=== PATIENT | female | born 1940 ===

== ENCOUNTER 2021-06-11 13:30 | Outpatient (RCR) | payer MEDICARE, BC, SELFPAY ==
--- NOTE | 2021-03-19 14:01 | W.PM.TMSCONS ---
History of Present Illness General Data Date of Service: 03/18/21 Reason for consult: TMS EVAL REFERRED BY [facility] SALTY CHOWDHURY NP History of Present Illness THE PATIENT IS A 80 YEAR-OLD FEMALE REFERRED TO [facility] FOR INCURABLES FOR TREATMENT WITH TMS. THE PATIENT IS A COMPLEX PATIENT WITH 3 YEARS WORSENING DEPRESSIVE SYMPTOMS BECOMING INCREASINGLY NONFUNCTIONAL COMPLICATED BY ATYPICAL NEUROLOGICAL SYMPTOMS . THE PATIENT HAS BECOME INCREASINGLY NONFUNCTIONAL LETHARGIC DEPRESSED HOPELESS HELPLESS WITH MINIMAL FUNCTIONING. SHE IS PREOCCUPIED AND ANXIOUS MUCH OF THE TIME. NEUROLOGICALLY SHE HAS BEEN NOTED TO HAVE ISOLATED INFREQUENT EPILEPTIFORM ABNORMALITIES OVER THE FRONTAL PARIETAL REGIONS NO ORGANIZED ACTIVITY SUGGESTIVE OF SEIZURES SHE HAS BEEN ON LAMOTRIGINE. PET SCAN IN FEBRUARY OF 2020 SHOWED SOME ATYPICAL ABNORMALITIES AND MRI SHOWED SOME PROMINENT SULCI AND A 1.5 CM POSTERIOR MENINGIOMA SEPTEMBER 2019 WHICH HAS GROWN MINIMALLY FROM 2017. THE PATIENT'S CURRENT MEDICATIONS INCLUDE WELLBUTRIN 75 MG S CITALOPRAM 20 MG LAMOTRIGINE 50 MG TWICE A DAY LEVOTHYROXINE 50 MICRO G LOSARTAN 100 MG MULTI KENDELL 1 TAB DAILY. THE PATIENT HAS BEEN FOLLOWED CYCLE FOR PHARMACOLOGICALLY BY SALTY GOFF CLINICAL NURSE PRACTITIONER TELEPHONE [phone]. [phone] SHE HAS A A THERAPIST RODOLFO SHIELDS AT [facility] A NEUROLOGIST ISACC BLANK TELEPHONE 6. [id number] HER PRIMARY CARE PHYSICIAN IS AT [facility] TELEPHONE 5. [id number] THE PATIENT HAS HAD ANXIETY IN THE PAST BUT OVER THE PAST 3 YEARS HAS BECOME INCREASINGLY NON FUNCTIONAL AND ACCORDING TO HER PROVIDERS DOES NOT SEEM TO BE CONSISTENT WITH WHAT MAY BE GOING ON NEUROLOGICALLY. SHE IS FELT TO BE CATASTROPHIC COULEE DEPRESSED FEARFUL ANXIOUS LEADING HER TO BECOME INCREASINGLY NONFUNCTIONAL. SHE IS TO BE QUITE ACTIVE ENGAGED BIKE RIDING HIKING AND SHE SPENDS MUCH OF HER TIME IN A CHAIR OR IN BED. SHE IS GETTING SOME PHYSICAL THERAPY TO. PATIENT HAS BEEN READING LIZBETH READING BOOKS. SHE HAS LOW ENERGY PSYCHOMOTOR RETARDATION DECREASED INTEREST MOTIVATION AND AVOIDANCE BEHAVIOR SECONDARY TO BOTH DEPRESSION AND WHAT APPEARS TO BE ANXIETY AND RUMINATION. SHE HAS BECOME QUITE FEARFUL AND SOCIAL SITUATIONS. PATIENT DENIES ANY ONGOING PSYCHOTIC SYMPTOMS AND DENIES THAT SHE HAS HAD ANY ACTIVE SELF-HARMING THOUGHTS. Past Psychiatric History/Medication Trials: Prior to the past couple of years the patient has a history of some anxiety symptoms past panic symptoms but was highly functional [facility] Medical History Generalized anxiety disorder with panic attacks Narrative: ? atypical dx unclear no tonic clonic on lamictal for mood and unclear other symptoms hx meningioma being monitored wt loss Dr. Rodriguez and Dr. Blank on 03/17/2021 stated that based on the patient's history and workup there are no clear absolute neurological contraindications to TMS Questionable history of Kta Vu experiences Neurological and neuro psychological evaluations remain without clear diagnosis and patient without significant decline over the past year. 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 jessica Velasco Family History: Mother with schizophrenia Social History: The patient is attended college she used to work as a banking manager. She has been to her from was 60 years and they have 5 children. Patient was very physically active with yoga jammie-chi biking going to the gym up until she became ill Patient was generally perfectionistic Substance History: none Trauma History: none Meds/Allergies Meds Narrative: Current medications include Wellbutrin 75 mg immediate release daily to be discontinued Colace 200 b.i.d. Lexapro 20 mg daily Lamictal 50 mg b.i.d. Synthroid 50 micro g Cozaar 100 mg daily multi Kendell 1 tab daily Allergies Allergies Allergy/AdvReac Type Severity Reaction Status Date / Time amlodipine AdvReac Mild edema Verified 04/01/21 11:12 Mental Status Exam Mental Status Exam Narrative: resting tremor significant anxiety sitting in wheelchair Patient Appearance: Well Grooomed and Fatigued Patient Orientation: Person, Place and Situation Level of Consciousness: Awake and Alert Patient Behavior: Appropriate and Anxious Mood Description: Depressed, Anxious and Apprehensive Affect Description: Depressed, Anxious and Apprehensive Patient Cognition Impaired: Yes Ability to Follow Directions: Good Speech Pattern: Clear Hallucinations: None (denies currently) Thought Process: Rumination Thought Content: positive for Preoccupation Depressive Symptoms: Increased Anxiety, Changes in Appetite, Significant Weight Loss, Isolating-Friends/Family, Increased Fatigue and Difficulty Concentrating Abnormal Motor Activity Signs and Symptoms: Psychomotor Retardation and Tremors Judgement: Fair Assessment & Plan Assessment & Plan (1) Major depressive disorder, recurrent episode, severe with anxious distress: Status: Acute Code(s): F33.2 - Major depressive disorder, recurrent severe without psychotic features Recommendations: tms indicated with some inc risk of seizure possible cognitive effect given unclear neurologic diagnosis this was reviewed with patient and her . The patient has had chronic depression unremitting with [place] in a typical neurological syndrome that does not appear to be a contraindication to TMS. Neurological note reviewed. Patient has no medical contraindications no cochlear implant pacemaker metallic fragments history of tonic-clonic seizures history of brain surgery or other surgery above the head or neck. The hope from a clean is that the patient if treated for depression will show improve functioning from whatever part of her condition has been a chronic mixture of depression and anxiety with increased lack of functioning will gradually increase MT and monitor for adverse effects. Above reviewed with referring to from clean and with patient and (2) Generalized anxiety disorder with panic attacks: Status: Acute Code(s): F41.1 - Generalized anxiety disorder; F41.0 - Panic disorder [episodic paroxysmal anxiety] Recommendations: cont tx plan per jenni ? r sided tx (3) Neurocognitive disorder: Status: Acute Code(s): R41.9 - Unspecified symptoms and signs involving cognitive functions and awareness Recommendations: monitor effects Greater than 50% of the session was spent on counseling and/or coordination of care
--- NOTE | 2021-03-24 23:28 | HO.TMSDAILY2 ---
TMS Daily Progress Note Daily TMS Progress Note Date of Service: 03/24/21 Week #: 1 Treatment #(09-28): 1 PHQ-9 Pre-Treatment (09-25): 19 PHQ-9 Most Recent (09-25): 19 Reviewed: TMS Mapping/Re-mapping completed Verification: I have reviewed the TMS Composing Room Machinist Apprentice Note and agree with the contents. The patient remains a candidate to continue TMS treatment per protocol. Informed consent obtained increased seizure risk reviewed with patient and
--- NOTE | 2021-03-25 23:30 | P.PNPS_ITS ---
TMS Daily Progress Note Daily TMS Progress Note Date of Service: 03/25/21 Week #: 1 Treatment #(09-28): 2 PHQ-9 Pre-Treatment (09-25): 19 PHQ-9 Most Recent (09-25): 19 Reviewed: TMS Tech Note Reviewed Verification: I have reviewed the TMS Insulation Cupola Charger Note and agree with the contents. The patient remains a candidate to continue TMS treatment per pro tocol. Patient tolerated tms well no adverse affects
--- NOTE | 2021-03-26 23:04 | HO.TMSDAILY2 ---
TMS Daily Progress Note Daily TMS Progress Note Date of Service: 03/26/21 Week #: 1 Treatment #(09-28): 3 PHQ-9 Pre-Treatment (09-25): 19 PHQ-9 Most Recent (09-25): 19 Reviewed: TMS Tech Note Reviewed Verification: I have reviewed the TMS Steam Locomotive Firer/Fireman Note and agree with the contents. The patient remains a candidate to continue TMS treatment per protocol.
--- NOTE | 2021-04-02 21:21 | HO.TMSDAILY2 ---
TMS Daily Progress Note Daily TMS Progress Note Date of Service: 04/02/21 Week #: 2 Treatment #(09-28): 8 PHQ-9 Pre-Treatment (09-25): 19 PHQ-9 Most Recent (09-25): 19 Reviewed: TMS Tech Note Reviewed Verification: I have reviewed the TMS Entry Level Sales Consultant Note and agree with the contents. The patient remains a candidate to continue TMS treatment per protocol.
--- NOTE | 2021-04-03 21:11 | P.PNPS_ITS ---
TMS Daily Progress Note Daily TMS Progress Note Date of Service: 03/27/21 Week #: 1 Treatment #(09-28): 4 late entry for 03/27/21 PHQ-9 Pre-Treatment (09-25): 19 PHQ-9 Most Recent (09-25): 19 Reviewed: TMS Tech Note Reviewed Verification: I have reviewed the TMS Rim Turning Finisher Note and agree with the contents. The patient remains a candidate to continue TMS treatment per protocol.
--- NOTE | 2021-04-03 21:13 | HO.TMSDAILY2 ---
TMS Daily Progress Note Daily TMS Progress Note Date of Service: 03/28/21 Week #: 1 Treatment #(09-28): 5 late entry for 03/28/21 PHQ-9 Pre-Treatment (09-25): 19 PHQ-9 Most Recent (09-25): 19 Reviewed: TMS Tech Note Reviewed Verification: I have reviewed the TMS Celebrity Chef Entrepreneur Media Personality Note and agree with the contents. The patient remains a candidate to continue TMS treatment per protocol.
--- NOTE | 2021-04-03 21:15 | HO.TMSDAILY2 ---
TMS Daily Progress Note Daily TMS Progress Note Date of Service: 03/31/21 Week #: 2 Treatment #(09-28): 6 late entry 03/31 PHQ-9 Pre-Treatment (09-25): 19 PHQ-9 Most Recent (09-25): 19 Reviewed: TMS Tech Note Reviewed Verification: I have reviewed the TMS County Director Welfare Note and agree with the contents. The patient remains a candidate to continue TMS treatment per protocol.
--- NOTE | 2021-04-03 21:17 | P.PNPS_ITS ---
TMS Daily Progress Note Daily TMS Progress Note Date of Service: 04/01/21 Week #: 2 Treatment #(09-28): 7 PHQ-9 Pre-Treatment (09-25): 19 PHQ-9 Most Recent (09-25): 19 Reviewed: TMS Tech Note Reviewed Verification: I have reviewed the TMS Chick Sexer Note and agree with the contents. The patient remains a candidate to continue TMS treatment per pro tocol.
--- NOTE | 2021-04-03 21:20 | HO.TMSDAILY2 ---
TMS Daily Progress Note Daily TMS Progress Note Date of Service: 04/01/21 Week #: 2 Treatment #(09-28): 7 PHQ-9 Pre-Treatment (09-25): 19 PHQ-9 Most Recent (09-25): 19 Reviewed: TMS Tech Note Reviewed Verification: I have reviewed the TMS Underground Production Foreperson Note and agree with the contents. The patient remains a candidate to continue TMS treatment per protocol.
--- NOTE | 2021-04-03 21:23 | HO.TMSDAILY2 ---
TMS Daily Progress Note Daily TMS Progress Note Date of Service: 04/03/21 Week #: 2 Treatment #(09-28): 9 PHQ-9 Pre-Treatment (09-25): 19 PHQ-9 Most Recent (09-25): 19 Reviewed: TMS Tech Note Reviewed Verification: I have reviewed the TMS Social Science Research Assistant Note and agree with the contents. The patient remains a candidate to continue TMS treatment per protocol.
--- NOTE | 2021-04-18 15:03 | P.PNPS_ITS ---
TMS Daily Progress Note Daily TMS Progress Note Date of Service: 04/18/21 Week #: 4 Treatment #(09-28): 20 PHQ-9 Pre-Treatment (09-25): 14 PHQ-9 Most Recent (09-25): 10 Reviewed: TMS Tech Note Reviewed Verification: I have reviewed the TMS Director Of Premium Seat Sales Note and agree with the contents. The patient remains a candidate to continue TMS treatment per pr otocol. Post-dated note.
--- NOTE | 2021-04-18 15:05 | HO.TMSDAILY2 ---
TMS Daily Progress Note Daily TMS Progress Note Date of Service: 04/17/21 Week #: 4 Treatment #(09-28): 19 PHQ-9 Pre-Treatment (09-25): 14 PHQ-9 Most Recent (09-25): 10 Reviewed: TMS Tech Note Reviewed Verification: I have reviewed the TMS Personal Computer Specialist Note and agree with the contents. The patient remains a candidate to continue TMS treatment per protocol. Post-dated note.
--- NOTE | 2021-04-18 15:06 | P.PNPS_ITS ---
TMS Daily Progress Note Daily TMS Progress Note Date of Service: 04/15/21 Week #: 4 Treatment #(09-28): 17 PHQ-9 Pre-Treatment (09-25): 14 PHQ-9 Most Recent (09-25): 10 Reviewed: TMS Tech Note Reviewed Verification: I have reviewed the TMS Warp Trucker Note and agree with the contents. The patient remains a candidate to continue TMS treatment per pr otocol. Post-dated note.
--- NOTE | 2021-04-18 15:06 | P.PNPS_ITS ---
TMS Daily Progress Note Daily TMS Progress Note Date of Service: 04/16/21 Week #: 4 Treatment #(09-28): 18 PHQ-9 Pre-Treatment (09-25): 14 PHQ-9 Most Recent (09-25): 10 Reviewed: TMS Tech Note Reviewed Verification: I have reviewed the TMS Nurse Coordinator Note and agree with the contents. The patient remains a candidate to continue TMS treatment per pr otocol. Post-dated note.
--- NOTE | 2021-04-18 15:08 | HO.TMSDAILY2 ---
TMS Daily Progress Note Daily TMS Progress Note Date of Service: 04/11/21 Week #: 3 Treatment #(09-28): 15 PHQ-9 Pre-Treatment (09-25): 14 PHQ-9 Most Recent (09-25): 12 Reviewed: TMS Tech Note Reviewed Verification: I have reviewed the TMS Diet Kitchen Cook Note and agree with the contents. The patient remains a candidate to continue TMS treatment per protocol. Post-dated note.
--- NOTE | 2021-04-18 15:09 | HO.TMSDAILY2 ---
TMS Daily Progress Note Daily TMS Progress Note Date of Service: 04/10/21 Week #: 3 Treatment #(09-28): 14 PHQ-9 Pre-Treatment (09-25): 14 PHQ-9 Most Recent (09-25): 12 Reviewed: TMS Tech Note Reviewed Verification: I have reviewed the TMS Superintendent Concrete Mixing Plant Note and agree with the contents. The patient remains a candidate to continue TMS treatment per protocol. Post-dated note.
--- NOTE | 2021-04-18 15:10 | HO.TMSDAILY2 ---
TMS Daily Progress Note Daily TMS Progress Note Date of Service: 04/09/21 Week #: 3 Treatment #(09-28): 13 PHQ-9 Pre-Treatment (09-25): 14 PHQ-9 Most Recent (09-25): 12 Reviewed: TMS Tech Note Reviewed Verification: I have reviewed the TMS Diesel Electrician Note and agree with the contents. The patient remains a candidate to continue TMS treatment per protocol. Post-dated note.
--- NOTE | 2021-04-18 15:11 | HO.TMSDAILY2 ---
TMS Daily Progress Note Daily TMS Progress Note Date of Service: 04/07/21 Week #: 3 Treatment #(09-28): 11 PHQ-9 Pre-Treatment (09-25): 14 PHQ-9 Most Recent (09-25): 12 Reviewed: TMS Tech Note Reviewed Verification: I have reviewed the TMS Insole Reinforcer Note and agree with the contents. The patient remains a candidate to continue TMS treatment per protocol. Post-dated note.
--- NOTE | 2021-04-18 15:11 | HO.TMSDAILY2 ---
TMS Daily Progress Note Daily TMS Progress Note Date of Service: 04/08/21 Week #: 3 Treatment #(09-28): 12 PHQ-9 Pre-Treatment (09-25): 14 PHQ-9 Most Recent (09-25): 12 Reviewed: TMS Tech Note Reviewed Verification: I have reviewed the TMS Correctional Case Records Supervisor Note and agree with the contents. The patient remains a candidate to continue TMS treatment per protocol. Post-dated note.
--- NOTE | 2021-04-18 18:59 | P.PNPS_ITS ---
TMS Daily Progress Note Daily TMS Progress Note Date of Service: 04/14/21 Week #: 4 Treatment #(09-28): 16 PHQ-9 Pre-Treatment (09-25): 19 PHQ-9 Most Recent (09-25): 19 Reviewed: TMS Tech Note Reviewed (late entry for 04/14/21) Verification: I have reviewed the TMS Cider Press Operator Note and agree with the contents. The patient remains a candidate to continue TMS treatment per protocol.
--- NOTE | 2021-04-18 20:02 | HO.TMSDAILY2 ---
TMS Daily Progress Note Daily TMS Progress Note Date of Service: 04/15/21 Week #: 4 Treatment #(09-28): 17 late entry for 04/15/21 PHQ-9 Pre-Treatment (09-25): 19 PHQ-9 Most Recent (09-25): 19 Reviewed: TMS Tech Note Reviewed Verification: I have reviewed the TMS Senior Firewall Engineer Note and agree with the contents. The patient remains a candidate to continue TMS treatment per protocol.
--- NOTE | 2021-04-21 15:07 | HO.TMSDAILY2 ---
TMS Daily Progress Note Daily TMS Progress Note Date of Service: 04/14/21 Week #: 4 Treatment #(09-28): 16 PHQ-9 Pre-Treatment (09-25): 14 PHQ-9 Most Recent (09-25): 10 Reviewed: TMS Tech Note Reviewed Verification: I have reviewed the TMS Machinist/Machine Builder Note and agree with the contents. The patient remains a candidate to continue TMS treatment per protocol. Post-dated note.
--- NOTE | 2021-04-21 22:11 | HO.TMSDAILY2 ---
TMS Daily Progress Note Daily TMS Progress Note Date of Service: 04/21/21 Week #: 5 Treatment #(09-28): 21 PHQ-9 Pre-Treatment (09-25): 14 PHQ-9 Most Recent (09-25): 12 Reviewed: TMS Tech Note Reviewed Verification: I have reviewed the TMS Oleo Hasher And Renderer Note and agree with the contents. The patient remains a candidate to continue TMS treatment per protocol.consider remap
--- NOTE | 2021-04-22 21:34 | P.PNPS_ITS ---
TMS Daily Progress Note Daily TMS Progress Note Date of Service: 04/22/21 Week #: 5 Treatment #(09-28): 22 PHQ-9 Pre-Treatment (09-25): 14 PHQ-9 Most Recent (09-25): 12 Reviewed: TMS Tech Note Reviewed Verification: I have reviewed the TMS Wood And Wood Products Factory Worker Note and agree with the contents. The patient remains a candidate to continue TMS treatment per p barb.
--- NOTE | 2021-04-23 22:31 | P.PNPS_ITS ---
TMS Daily Progress Note Daily TMS Progress Note Date of Service: 04/23/21 Week #: 5 Treatment #(09-28): 23 PHQ-9 Pre-Treatment (09-25): 14 PHQ-9 Most Recent (09-25): 12 Reviewed: TMS Mapping/Re-mapping completed Verification: I have reviewed the TMS Molding Machine Operator Note and agree with the contents. The patient remains a candidate to continue TMS treatment per protocol. remapping done no significant improvement no clear side effects pt seen with
--- NOTE | 2021-04-24 22:19 | HO.TMSDAILY2 ---
TMS Daily Progress Note Daily TMS Progress Note Date of Service: 04/24/21 Week #: 5 Treatment #(09-28): 24 PHQ-9 Pre-Treatment (09-25): 14 PHQ-9 Most Recent (09-25): 12 Reviewed: TMS Tech Note Reviewed Verification: I have reviewed the TMS Campus Security Officer Note and agree with the contents. The patient remains a candidate to continue TMS treatment per protocol.
--- NOTE | 2021-04-25 17:49 | HO.TMSDAILY2 ---
TMS Daily Progress Note Daily TMS Progress Note Date of Service: 04/25/21 Week #: 5 Treatment #(09-28): 25 PHQ-9 Pre-Treatment (09-25): 14 PHQ-9 Most Recent (09-25): 12 Reviewed: TMS Tech Note Reviewed Verification: I have reviewed the TMS Filter Bed Placer Note and agree with the contents. The patient remains a candidate to continue TMS treatment per protocol.
--- NOTE | 2021-04-28 22:42 | HO.TMSDAILY2 ---
TMS Daily Progress Note Daily TMS Progress Note Date of Service: 04/28/21 Week #: 6 Treatment #(09-28): 26 PHQ-9 Pre-Treatment (09-25): 14 PHQ-9 Most Recent (09-25): 12 Reviewed: TMS Tech Note Reviewed Verification: I have reviewed the TMS Ornamental Plaster Sticker Note and agree with the contents. The patient remains a candidate to continue TMS treatment per protocol.
--- NOTE | 2021-04-29 23:07 | HO.TMSDAILY2 ---
TMS Daily Progress Note Daily TMS Progress Note Date of Service: 04/29/21 Week #: 6 Treatment #(09-28): 27 PHQ-9 Pre-Treatment (09-25): 14 PHQ-9 Most Recent (09-25): 12 Reviewed: TMS Tech Note Reviewed Verification: I have reviewed the TMS Cartoon Animator Note and agree with the contents. The patient remains a candidate to continue TMS treatment per protocol.
--- NOTE | 2021-05-01 00:14 | P.PNPS_ITS ---
TMS Daily Progress Note Daily TMS Progress Note Date of Service: 05/01/21 Week #: 6 Treatment #(09-28): 28 PHQ-9 Pre-Treatment (09-25): 14 PHQ-9 Most Recent (09-25): 12 Reviewed: TMS Tech Note Reviewed Verification: I have reviewed the TMS Supervisor Elementary Education Note and agree with the contents. The patient remains a candidate to continue TMS treatment per p barb.
--- NOTE | 2021-05-02 22:07 | P.PNPS_ITS ---
TMS Daily Progress Note Daily TMS Progress Note Date of Service: 05/02/21 Week #: 6 Treatment #(09-28): 30 PHQ-9 Pre-Treatment (09-25): 14 PHQ-9 Most Recent (09-25): 12 Reviewed: TMS Tech Note Reviewed Verification: I have reviewed the TMS Early Intervention School Psychologist Note and agree with the contents. The patient remains a candidate to continue TMS treatment per p barb.
--- NOTE | 2021-05-07 21:09 | P.PNPS_ITS ---
TMS Daily Progress Note Daily TMS Progress Note Date of Service: 05/07/21 Week #: 7 Treatment #(09-28): 32 PHQ-9 Pre-Treatment (09-25): 14 PHQ-9 Most Recent (09-25): 12 Reviewed: TMS Tech Note Reviewed Verification: I have reviewed the TMS Media Production Operator Note and agree with the contents. The patient remains a candidate to continue TMS treatment per p barb.
--- NOTE | 2021-05-08 17:13 | P.PNPS_ITS ---
TMS Daily Progress Note Daily TMS Progress Note Date of Service: 05/08/21 Week #: 7 Treatment #(09-28): 33 PHQ-9 Pre-Treatment (09-25): 14 PHQ-9 Most Recent (09-25): 12 Reviewed: TMS Tech Note Reviewed Verification: I have reviewed the TMS Sanitation Inspector Note and agree with the contents. The patient remains a candidate to continue TMS treatment per p barb.
--- NOTE | 2021-05-09 22:44 | P.PNPS_ITS ---
TMS Daily Progress Note Daily TMS Progress Note Date of Service: 05/09/21 Week #: 8 Treatment #(09-28): 34 PHQ-9 Pre-Treatment (09-25): 14 PHQ-9 Most Recent (09-25): 12 Reviewed: TMS Tech Note Reviewed Verification: I have reviewed the TMS Services Manager Note and agree with the contents. The patient remains a candidate to continue TMS treatment per p barb.
--- NOTE | 2021-05-13 21:52 | P.PNPS_ITS ---
TMS Daily Progress Note Daily TMS Progress Note Date of Service: 05/13/21 Week #: 8 Treatment #(09-28): 35 PHQ-9 Pre-Treatment (09-25): 14 PHQ-9 Most Recent (09-25): 12 Reviewed: TMS Tech Note Reviewed Verification: I have reviewed the TMS Permanent Mold Supervisor Note and agree with the contents. The patient remains a candidate to continue TMS treatment per radhames day. pt seen extensiveley with her
--- NOTE | 2021-05-14 20:30 | P.PNPS_ITS ---
TMS Daily Progress Note Daily TMS Progress Note Date of Service: 05/14/21 Week #: 8 Treatment #(09-28): 36 PHQ-9 Pre-Treatment (09-25): 14 PHQ-9 Most Recent (09-25): 12 Reviewed: TMS Tech Note Reviewed Verification: I have reviewed the TMS Child Welfare Caseworker Note and agree with the contents. The patient remains a candidate to continue TMS treatment per p barb.
--- NOTE | 2021-05-19 20:37 | P.PNPS_ITS ---
TMS Daily Progress Note Daily TMS Progress Note Date of Service: 05/19/21 Week #: 8 Treatment #(09-28): 37 PHQ-9 Pre-Treatment (09-25): 14 PHQ-9 Most Recent (09-25): 12 Reviewed: TMS Tech Note Reviewed Verification: I have reviewed the TMS Investigator Claims Note and agree with the contents. The patient remains a candidate to continue TMS treatment per p barb. Patient case reviewed in consultation with TMS group. [facility] geriatric service also consulted. The patient's PHQ-9 has decreased in half her quality of life is just beginning to slowly improve going out more walking with her . Patient has essentially been bed ridden and nonfunctional for 2 years has failed medication treatment and appears to be gradually responding to TMS. Next treatment considered recommended by Pieter was ECT which given patient's fragile condition question degenerative neurological condition would be a difficult choice. Given the patient's improvement for the 1st time in 2 years improved mood and functioning will extend treatment course which in the literature is suggested for patients to show improvement and continue to treat past 36 treatments. Above reviewed with patient and her and Pieter psychiatric No adverse effects have been noted no increase seizure activity patient is significantly more alert functional ambulatory and more social. Prior to treatment she had essentially been bed ridden and nonfunctional.
--- NOTE | 2021-05-20 21:31 | HO.TMSDAILY2 ---
TMS Daily Progress Note Daily TMS Progress Note Date of Service: 05/20/21 Week #: 8 Treatment #(09-28): 38 PHQ-9 Pre-Treatment (09-25): 14 PHQ-9 Most Recent (09-25): 12 Reviewed: TMS Tech Note Reviewed Verification: I have reviewed the TMS Farm Service Consultant Note and agree with the contents. The patient remains a candidate to continue TMS treatment per protocol.
--- NOTE | 2021-05-26 21:11 | P.PNPS_ITS ---
TMS Daily Progress Note Daily TMS Progress Note Date of Service: 05/26/21 Week #: 9 Treatment #(09-28): 39 PHQ-9 Pre-Treatment (09-25): 14 PHQ-9 Most Recent (09-25): 12 Reviewed: TMS Tech Note Reviewed Verification: I have reviewed the TMS Driller And Broacher Note and agree with the contents. The patient remains a candidate to continue TMS treatment per p barb.
--- NOTE | 2021-05-28 20:32 | HO.TMSDAILY2 ---
TMS Daily Progress Note Daily TMS Progress Note Date of Service: 05/28/21 Week #: 9 Treatment #(09-28): 40 PHQ-9 Pre-Treatment (09-25): 14 PHQ-9 Most Recent (09-25): 12 Reviewed: TMS Tech Note Reviewed Verification: I have reviewed the TMS Gravity Meter Observer Note and agree with the contents. The patient remains a candidate to continue TMS treatment per protocol.
--- NOTE | 2021-06-02 21:53 | P.PNPS_ITS ---
TMS Daily Progress Note Daily TMS Progress Note Date of Service: 05/30/21 Week #: 9 Treatment #(09-28): 41 PHQ-9 Pre-Treatment (09-25): 14 PHQ-9 Most Recent (09-25): 12 Reviewed: TMS Tech Note Reviewed Verification: I have reviewed the TMS Diesel Maintenance Electrician Note and agree with the contents. The patient remains a candidate to continue TMS treatment per p barb.
--- NOTE | 2021-06-03 21:45 | HO.TMSDAILY2 ---
TMS Daily Progress Note Daily TMS Progress Note Date of Service: 06/03/21 Week #: 10 Treatment #(09-28): 42 PHQ-9 Pre-Treatment (09-25): 14 PHQ-9 Most Recent (09-25): 12 Reviewed: TMS Tech Note Reviewed Verification: I have reviewed the TMS Cosmetology Educator Note and agree with the contents. The patient remains a candidate to continue TMS treatment per protocol.
--- NOTE | 2021-06-05 22:28 | P.PNPS_ITS ---
TMS Daily Progress Note Daily TMS Progress Note Date of Service: 06/04/21 Week #: 10 Treatment #(09-28): 43 PHQ-9 Pre-Treatment (09-25): 14 PHQ-9 Most Recent (09-25): 12 Reviewed: TMS Tech Note Reviewed Verification: I have reviewed the TMS Food And Beverage Assistant Manager Note and agree with the contents. The patient remains a candidate to continue TMS treatment per protocol.
--- NOTE | 2021-06-06 22:33 | HO.TMSDAILY2 ---
TMS Daily Progress Note Daily TMS Progress Note Date of Service: 06/06/21 Week #: 10 Treatment #(09-28): 44 PHQ-9 Pre-Treatment (09-25): 14 PHQ-9 Most Recent (09-25): 12 Reviewed: TMS Tech Note Reviewed Verification: I have reviewed the TMS Professor/Nurse Anesthetist Note and agree with the contents. The patient remains a candidate to continue TMS treatment per protocol.pt seen clear improvement noted
--- NOTE | 2021-06-12 11:05 | HO.TMSDAILY2 ---
TMS Daily Progress Note Daily TMS Progress Note Date of Service: 06/11/21 Week #: 10 (11) Treatment #(09-28): 45 PHQ-9 Pre-Treatment (09-25): 14 PHQ-9 Most Recent (09-25): 12 Reviewed: TMS Tech Note Reviewed Verification: I have reviewed the TMS Diesel Maintenance Technician Note and agree with the contents. The patient remains a candidate to continue TMS treatment per protocol.
== END 2021-06-12 08:08 | disposition home or self-care (01) ==
LOC: HO.PTMS 13:30
PROVIDERS: Visit Provider Psychiatry & Neurology Psychiatry
DX: F33.2 Major depressive disorder, recurrent severe without psychotic features (principal); F41.1 Generalized anxiety disorder; F41.0 Panic disorder [episodic paroxysmal anxiety]; R41.9 Unspecified symptoms and signs involving cognitive functions and awareness
CPT/HCPCS: 90867; 90868; 90869

== ENCOUNTER 2023-08-18 07:54 | Outpatient (AMB) | payer OTHER, SELFPAY ==
--- NOTE | 2023-08-18 08:08 | MHC.OFFVIS ---
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 Cell Biology Scientist Required: No Allergies amlodipine Adverse Reaction (Mild, Verified 08/18/23 08:10) edema Medication List - Last Reconciled 08/18/23 by Shawna Ocasio MD atorvastatin 40 mg PO DAILY dextromethorphan-quinidine 20-10 mg (Nuedexta) 1 cap PO Q12H docusate sodium 100 mg PO DAILY lamotrigine 25 mg PO DAILY levothyroxine 75 mcg PO DAILY polyethylene glycol 3350 (Miralax) 17 grams PO DAILY sennosides (senna) 8.6 mg PO BEDTIME valsartan 160 mg PO DAILY venlafaxine ER 37.5 mg PO DAILY HPI HPI Comments History of Present Illness Details 82y/o female with Diffuse Lewy body dementia comes for further management. She is accompanied by her daughter and her . ABout 5 years ago she started having hallucinations, tremors etc. she was seen at [facility] disorders clinic - initially diagnosed with depression , anxiety for 2 years.Her hallucinations worsened . Her MIREYA scan showed decreased uptake. she was tried on carbidopa/levodopa on 2 occasions and she developed severe side effects. She also has pseudobulbar affect and was started on nudexta. Her memory fluctuates.It is mainly short term memory issues. she has tightness in her hands and that affects her ADLS. she uses a walker. she reports 4 falls in the past year. she also has constipation - severe. she denies diplopia but has occasional vertigo. she spends a lot of time in bed [facility] Medical History (Updated 08/18/23 @ 09:09 by Shawna Ocasio MD) Osteoarthritis Meningioma Hypothyroidism Smoking Hypertension Hyperlipidemia Basal cell carcinoma Pseudobulbar affect Lewy body dementia with anxiety Generalized anxiety disorder with panic attacks Surgical History (Updated 08/18/23 @ 08:18 by Nia Sosa CMA) History of ankle surgery Hx of tonsillectomy H/O knee surgery Family History (Updated 08/18/23 @ 08:18 by Nia Sosa CMA) Father No problems noted. Social History (Updated 08/18/23 @ 08:19 by Nia Sosa [facility]) Household Members: Spouse Housing: House Alcohol intake: former Patient Tobacco Use Status: Former Tobacco user Years Smoked: 1976 Review of Systems Neuro Reports confusion Psych Reports confusion Physical Exam Vital Signs: Last Vital Signs Pulse 76 08/18/23 08:10 Resp 16 08/18/23 08:10 BP 122/70 08/18/23 08:10 BMI result Body Mass Index 21.6 Const General: cooperative and confusion Nutritional Appearance: average body habitus Orientation/consciousness: confusion Neuro Other: Moderately decreased facial expression and blink Rest tremors in right UE Bernardo Bradykinsesia Increased tone in all extremities severely decreased FFM an dfoot taps Gait- with walker , narrow based, small steps , frequent freezing General: confusion Cranial nerves: Yes Facial sensation intact/muscles of mastication intact, Yes Bilaterally intact EOM present, Yes Nystagmus not present, Yes Normal facial strength present and Yes Midline tongue present Cognition (Neuro): abnormal cognition Deep tendon reflexes (DTR's): Right triceps reflex intensity grade: 2+, Left triceps reflex intensity grade: 2+, Rt Biceps (C5, C6): 2+, Left biceps reflex intensity grade: 2+, Right brachioradialis reflex intensity grade: 2+, Left brachioradialis reflex intensity grade: 2+, Right patellar reflex intensity grade: 2+ and Left patellar reflex intensity grade: 2+ Coordination: [id number] test normal Orientation What is the (year) (season) (date) (day) (month)?: season and month Where are we (state) (county) (town or city) (hospital) (floor)?: state, county, town or city, hospital/clinic and floor Registration Name of 3 unrelated objects clearly and slowly, then ask patient to repeat all 3 of them. (1st repeat determines score. Make sure they can repeat all three): object 1, object 2 and object 3 Attention & Calculation (CHOOSE ONE) Spell WORLD backwards (DLROW): 2 letters Recall Ask patient to repeat the 3 items from question #3.: object 1, object 2 and object 3 Language Show patient a wristwatch & ask what it is. Repeat for pencil.: watch and pencil Ask the patient to repeat the phrase 'No ifs, ands, or buts' after you.: correct Ask the patient to 'take a piece of paper with their right hand' 'fold paper in half' 'place paper on floor': take paper in right hand, fold paper in half and place paper on floor Score Score: 21 Assessment & Plan Assessment & Plan (1) Lewy body dementia with anxiety: Code(s): G31.83 - Neurocognitive disorder with Lewy bodies; F02.84 - Dementia in other diseases classified elsewhere, unspecified severity, with anxiety (2) Pseudobulbar affect: Code(s): F48.2 - Pseudobulbar affect Plan Suggested to continue OT and PT she is very sensitive to medications- so will hold off on adding any dopaminergic meds at this time Suggested to start cognitive exericses like reaidng , puzzles, word games etc and spend less time in ehr bedroom Given info on APDA - for seated exercises to maintain mobility Medications: New lamotrigine 50 mg PO BID propranolol 20 mg PO TID venlafaxine ER 1/2 tab orally daily; Coding Level of Care Code New Pt Level 4 (92498) Diagnoses Lewy body dementia with anxiety G31.83; F02.84 Pseudobulbar affect F48.2
[2023-08-18 08:10] VITALS: BP 122/70; PULSE 76; RESP 16; BMI 21.6
== END 2023-08-18 08:58 | disposition home or self-care (01) ==
PROVIDERS: PCP Nurse Practitioner; Referring Provider Nurse Practitioner; Visit Provider Psychiatry & Neurology Neurology
DX: G31.83 Neurocognitive disorder with Lewy bodies (principal); F02.84 Dementia in other diseases classified elsewhere, unspecified severity, with anxiety; F48.2 Pseudobulbar affect
CPT/HCPCS: 99204

== ENCOUNTER → 2023-08-18 07:54 | Outpatient (BNVA) | payer OTHER, MEDICAID, SELFPAY | PROVIDERS: PCP Nurse Practitioner; Referring Provider Nurse Practitioner; Visit Provider Psychiatry & Neurology Neurology | DX: G31.83 Neurocognitive disorder with Lewy bodies (principal); F02.84 Dementia in other diseases classified elsewhere, unspecified severity, with anxiety; F48.2 Pseudobulbar affect | CPT/HCPCS: 99202 ==

== ENCOUNTER 2024-02-17 08:04 | Outpatient (AMB) | payer OTHER, SELFPAY ==
--- NOTE | 2024-02-17 08:13 | MHC.OFFVIS ---
Vital Signs 02/17/24 08:14 Height 5 ft 4 in Weight 133 lb BMI 22.8 BP 118/66 Blood Pressure Location Rt brachial Position Sitting Respiration 16 Pulse 62 Pulse Source Pulse Oximeter Pulse Oximetry (%) 96 Oxygen Delivery Method Room Air Intake Visit Reasons: follow up Dementia w/mood disturbance - Confirmed Intake Note: Pt presents to office for 6 month follow up for Lewy body dementia with anxiety. Adoption Social Worker Required: No Allergies amlodipine Adverse Reaction (Mild, Verified 02/17/24 08:14) edema Medication List - Last Reconciled 02/17/24 by Shawna Ocasio MD amlodipine-atorvastatin 5-40 mg 1 tab PO DAILY dextromethorphan-quinidine 20-10 mg (Nuedexta) 1 cap PO Q12H docusate sodium 100 mg PO DAILY lamotrigine 50 mg PO BID levothyroxine 75 mcg PO DAILY polyethylene glycol 3350 (Miralax) 17 grams PO DAILY propranolol 20 mg PO TID sennosides (senna) 8.6 mg PO BEDTIME valsartan 160 mg PO DAILY venlafaxine ER 1/2 tab orally daily; HPI Comments Details: 83y/o female with Diffuse Lewy body dementia comes for further management. she has home health aide 3 days, 2 days has staff from [facility] comes to help. she is calmer and cooperative. No falls She is accompanied by her son and her . ABout 5 years ago she started having hallucinations, tremors etc. she was seen at [facility] Movement disorders clinic - initially diagnosed with depression , anxiety for 2 years.Her hallucinations worsened . Her MIREYA scan showed decreased uptake. she was tried on carbidopa/levodopa on 2 occasions and she developed severe side effects. She also has pseudobulbar affect and was started on nudexta. Her memory fluctuates.It is mainly short term memory issues. she has tightness in her hands and that affects her ADLS. she uses a walker. she reports 4 falls in the past year. she also has constipation - severe. she denies diplopia but has occasional vertigo. she spends a lot of time in bed [facility] Medical History (Updated 08/18/23 @ 09:09 by Shawna Ocasio MD) Osteoarthritis Meningioma Hypothyroidism Smoking Hypertension Hyperlipidemia Basal cell carcinoma Pseudobulbar affect Lewy body dementia with anxiety Generalized anxiety disorder with panic attacks Surgical History History of ankle surgery Hx of tonsillectomy H/O knee surgery Family History Father No problems noted. Social History Household Members: Spouse Housing: House Alcohol intake: former Patient Tobacco Use Status: Former Tobacco user Years Smoked: 1976 Review of Systems Neuro Reports confusion Psych Reports confusion Physical Exam Vital Signs: Last Vital Signs Pulse 62 02/17/24 08:14 Resp 16 02/17/24 08:14 BP 118/66 02/17/24 08:14 Pulse Ox 96 02/17/24 08:14 Oxygen Delivery Method Room Air 02/17/24 08:14 BMI result Body Mass Index 22.8 Const General: cooperative and confusion Nutritional Appearance: average body habitus Orientation/consciousness: confusion Neuro Other: Moderately decreased facial expression and blink Rest tremors in right UE Bernardo Bradykinsesia Increased tone in all extremities severely decreased FFM an dfoot taps Gait- with walker , narrow based, small steps , frequent freezing General: confusion Cranial nerves: Yes Facial sensation intact/muscles of mastication intact, Yes Bilaterally intact EOM present, Yes Nystagmus not present, Yes Normal facial strength present and Yes Midline tongue present Cognition (Neuro): abnormal cognition Deep tendon reflexes (DTR's): Right triceps reflex intensity grade: 2+, Left triceps reflex intensity grade: 2+, Rt Biceps (C5, C6): 2+, Left biceps reflex intensity grade: 2+, Right brachioradialis reflex intensity grade: 2+, Left brachioradialis reflex intensity grade: 2+, Right patellar reflex intensity grade: 2+ and Left patellar reflex intensity grade: 2+ Coordination: [id number] test normal Assessment & Plan Assessment & Plan (1) Lewy body dementia with anxiety: Code(s): G31.83 - Neurocognitive disorder with Lewy bodies; F02.84 - Dementia in other diseases classified elsewhere, unspecified severity, with anxiety Category: Medical (2) Pseudobulbar affect: Code(s): F48.2 - Pseudobulbar affect Category: Medical Plan Restart home OT and PT she is very sensitive to medications- so will hold off on adding any dopaminergic meds at this time Suggested to start cognitive exericses like reaidng , puzzles, word games etc and spend less time in ehr bedroom Given info on APDA - for seated exercises to maintain mobility Orders: Referrals [facility] Referral F02.84 - Dementia in other diseases classified elsewhere, unspecified severity, with anxiety, G31.83 - Neurocognitive disorder with Lewy bodies, M19.90 - Unspecified osteoarthritis, unspecified site Coding Level of Care Code Est Pt Level 4 (42186) Complex EM visit Add On G2211 Diagnoses Lewy body dementia with anxiety G31.83; F02.84 Pseudobulbar affect F48.2
[2024-02-17 08:14] VITALS: BP 118/66; PULSE 62; RESP 16; O2SAT 96; BMI 22.8
== END 2024-02-17 08:49 | disposition home or self-care (01) ==
PROVIDERS: PCP Nurse Practitioner; Visit Provider Psychiatry & Neurology Neurology
DX: G31.83 Neurocognitive disorder with Lewy bodies (principal); F02.84 Dementia in other diseases classified elsewhere, unspecified severity, with anxiety; F48.2 Pseudobulbar affect
CPT/HCPCS: 99214; G2211

== ENCOUNTER → 2024-02-17 08:04 | Outpatient (BNVA) | payer OTHER, SELFPAY | PROVIDERS: PCP Nurse Practitioner; Visit Provider Psychiatry & Neurology Neurology | DX: G31.83 Neurocognitive disorder with Lewy bodies (principal); F48.2 Pseudobulbar affect | CPT/HCPCS: 99212 ==

== ENCOUNTER → 2024-09-18 09:43 | Outpatient (BNVA) | payer OTHER, SELFPAY | PROVIDERS: PCP Nurse Practitioner; Visit Provider Psychiatry & Neurology Neurology ==